=== PATIENT | female | born 1950 | race Hispanic/Latino ===

== ENCOUNTER 2020-12-15 20:59 | Emergency (ER) | payer OTHER ==
[2020-12-15 22:28] LABS: Basophils % 0.6 % (0-1.3); Hematocrit 43.8 % (36.0-45.0); Lymphocytes % 23.5 % (15.3-44.8); MPV 9.4 fL (7.6-11.3); RBC Red Blood Cell Count 5.02 M/uL (3.86-4.86)
[2020-12-15 22:39] LABS: ALT/SGPT 53 U/L (12-78); AST/SGOT 29 U/L (15-37); Albumin 3.9 g/dL (3.4-5.0); Alkaline Phosphatase 128 U/L (45-117); BUN Blood Urea Nitrogen 14 mg/dL (7-18); Bicarbonate 29 mmol/L (21-32); Bilirubin Direct 0.1 mg/dL (0-0.2); Bilirubin Total 0.3 mg/dL (0.2-1.0); Glucose Level 122 mg/dL (74-106); Lipase 153 U/L (73-393); Potassium 3.6 mmol/L (3.5-5.1); Protein, Total 8.3 g/dL (6.4-8.2); Sodium Level 141 mmol/L (136-145)
--- NOTE | 2020-12-16 00:45 | EDPHYS ---
Physician Documentation [facility] Name: Lakia Patel Age: 70 yrs Sex: Female : 1950 Arrival Date: 12/15/2020 Time: 21:03 Bed 26 Private MD: ED Physician Sly Welsh HPI: 12/16 00:42 This 70 yrs old Female presents to ER via Ambulatory with complaints of Rectal jmm Bleeding. 00:42 The patient presents to the emergency department with bleeding from the rectum/anus, jmm that is moderate. Onset: The symptoms/episode began/occurred today. Modifying factors: The symptoms are alleviated by nothing. This is a 70-year-old female with history of diabetes mellitus presents emerged department with complaints of 3 episodes of bloody bowel movements. Describes as bright red. Patient states having some mild abdominal pain. Denies dysuria. Denies vomiting. Denies tarry stools. Denies black stools.. Historical: - Allergies: 12/15 21:20 No Known Allergies; sj1 - Home Meds: 22:00 metformin 500 mg Oral tab 1 tab 2 times per day [Active]; dc2 22:00 glipizide 5 mg Oral tab once daily [Active]; losartan 25 mg oral tab once daily dc2 [Active]; letrozole 2.5 mg oral tab once daily [Active]; oxybutynin chloride 5 mg Oral tr24 1 tab once daily [Active]; 22:00 Glucosamine-Chondroitin Complx 750-625-30 mg oral tab daily [Active]; dc2 - PMHx: 21:20 Diabetes - NIDDM; Hypertension; Fatty Liver; Breast Ca (rt side); sj1 - PSHx: 21:20 Cholecystectomy; colonoscopy; Lumpectomy of breast; rt; sj1 - Immunization history:: Adult Immunizations up to date. - Social history:: Smoking status: Patient denies any tobacco usage or history of. Patient/guardian denies using alcohol, street drugs. ROS: 12/16 00:42 Constitutional: Negative for fever, chills, and weight loss, Cardiovascular: Negative jmm for chest pain, palpitations, and edema, Respiratory: Negative for shortness of breath, cough, wheezing, and pleuritic chest pain. Abdomen/GI: Positive for rectal bleeding. All other systems are negative. Exam: 00:42 Constitutional: This is a well developed, well nourished patient who is awake, alert, jmm and in no acute distress. Head/Face: atraumatic. Eyes: EOMI, no conjunctival erythema appreciated ENT: Moist Mucus Membranes Neck: Trachea midline, Supple Chest/axilla: Normal chest wall appearance and motion. Cardiovascular: Regular rate and rhythm. No edema appreciated Respiratory: Normal respirations, no respiratory distress appreciated 00:42 Back: Normal ROM Skin: General appearance color normal MS/ Extremity: Moves all extremities, no obvious deformities appreciated, no edema noted to the lower extremities Neuro: Awake and alert, normal gait Psych: Behavior is normal, Mood is normal, Patient is cooperative and pleasant 00:42 Abdomen/GI: Inspection: obese Bowel sounds: normal, Palpation: soft, mild abdominal tenderness, in all quadrants. Vital Signs: 12/15 21:16 BP 159 / 52 RA Sitting (auto/lg); Pulse 78; Resp 18 S; Temp 98.4; Pulse Ox 100% on R/A; [facility] Weight 103.42 kg (R); Height 5 ft. 0 in. (152.40 cm) (R); Pain 0/10; 22:00 BP 135 / 58; Pulse 75; Resp 17; Pulse Ox 97% ; Pain 0/10; dc2 23:00 BP 178 / 80; Pulse 73; Resp 18; Pulse Ox 97% ; Pain 0/10; dc2 12/16 00:15 BP 173 / 80; Pulse 79; Resp 8; Temp 98.0; Pulse Ox 98% ; Pain 0/10; dc2 12/15 21:16 Body Mass Index 44.53 (103.42 kg, 152.40 cm) [facility] MDM: 12/15 21:35 Patient medically screened. [facility] 12/16 00:44 Data reviewed: vital signs, nurses notes. Counseling: I had a detailed discussion with amie the patient and/or guardian regarding: the historical points, exam findings, and any diagnostic results supporting the discharge/admit diagnosis, lab results, radiology results, the need for outpatient follow up, to return to the emergency department if symptoms worsen or persist or if there are any questions or concerns that arise at home. 12/15 21:57 Order name: Basic Metabolic Panel; Complete Time: 22:[address] [facility] 12/15 21:57 Order name: CBC with Diff; Complete Time: 22:[address] [facility] 12/15 21:57 Order name: Hepatic Function; Complete Time: 22:[address] [facility] 12/15 21:57 Order name: Lipase; Complete Time: 22:[address] [facility] 12/15 21:57 Order name: Type And Screen [facility] 12/15 21:57 Order name: CT Abd/Pelvis - IV Contrast Only [facility] 12/15 21:57 Order name: IV Saline Lock; Complete Time: 22:[address] [facility] 12/15 21:57 Order name: Labs collected and sent; Complete Time: 22:[address] [facility] Administered Medications: No medications were administered Disposition: 08:03 Co-signature as Attending Physician, Sly Welsh MD I agree with the assessment and dago plan of care. Disposition Summary: 12/16/20 00:45 Discharge Ordered Location: Home [facility] Condition: Stable [facility] Diagnosis - Rectal Bleeding [facility] Followup: [facility] - With: Igor Ling MD - When: 2 - 3 days - Reason: Recheck today's complaints, Continuance of care, Re-evaluation by your physician Discharge Instructions: - Discharge Summary Sheet [facility] - Rectal Bleeding [facility] Forms: - Medication Reconciliation Form [facility] - Thank You Letter [facility] - Antibiotic Education [facility] - Prescription Opioid Use [facility] Signatures: Dispatcher [employer] Sly Cannon MD MD cha Mickail, Joel, PA PA [facility] BruceDpiti, RN RN dc2 Ivonne Lucas RN RN sj1
--- NOTE | 2020-12-16 00:45 | ER ---
Nurse's Notes [facility] Name: Lakia Patel Age: 70 yrs Sex: Female : 1950 Arrival Date: 12/15/2020 Time: 21:03 Bed 26 [facility] MD: Diagnosis: Rectal Bleeding Presentation: 12/15 21:16 Chief complaint: Patient states: reports 3 bowel movements today with bright red blood, sj1 denies abd pain, nausea, and vomiting. Coronavirus screen: Vaccine status: Patient reports receiving the 2nd dose of the covid vaccine. Ebola Screen: No symptoms or risks identified at this time. Initial Sepsis Screen: Does the patient meet any 2 criteria? No. Patient's initial sepsis screen is negative. Does the patient have a suspected source of infection? No. Patient's initial sepsis screen is negative. Risk Assessment: Do you want to hurt yourself or someone else? Patient reports no desire to harm self or others. Onset of symptoms was December 15, 2020. 21:16 Method Of Arrival: Ambulatory [facility] 21:16 Acuity: RAVEN 3 sj1 Triage Assessment: 21:22 General: Appears in no apparent distress. Behavior is calm, cooperative, appropriate sj1 for age. Pain: Denies pain. GI: Reports rectal bleeding. : No signs and/or symptoms were reported regarding the genitourinary system. Historical: - Allergies: 21:20 No Known Allergies; sj1 - Home Meds: 22:00 metformin 500 mg Oral tab 1 tab 2 times per day [Active]; dc2 22:00 glipizide 5 mg Oral tab once daily [Active]; losartan 25 mg oral tab once daily dc2 [Active]; letrozole 2.5 mg oral tab once daily [Active]; oxybutynin chloride 5 mg Oral tr24 1 tab once daily [Active]; 22:00 Glucosamine-Chondroitin Complx 750-625-30 mg oral tab daily [Active]; dc2 - PMHx: 21:20 Diabetes - NIDDM; Hypertension; Fatty Liver; Breast Ca (rt side); sj1 - PSHx: 21:20 Cholecystectomy; colonoscopy; Lumpectomy of breast; rt; sj1 - Immunization history:: Adult Immunizations up to date. - Social history:: Smoking status: Patient denies any tobacco usage or history of. Patient/guardian denies using alcohol, street drugs. Screenin:23 Abuse screen: Denies threats or abuse. Denies injuries from another. Nutritional 1 screening: No deficits noted. Tuberculosis screening: No symptoms or risk factors identified. Fall Risk None identified. Assessment: 21:35 Reassessment: Patient denies pain at this time. dc2 21:35 General: Appears in no apparent distress. comfortable, obese, well groomed, Behavior is dc2 calm, cooperative. Pain: Denies pain. Neuro: No deficits noted. Level of Consciousness is awake, alert, obeys commands, Oriented to person, place, time, situation, Denies weakness blurred vision headache. Cardiovascular: No deficits noted. Denies chest pain, shortness of breath. Respiratory: No deficits noted. Airway is patent Breath sounds are clear bilaterally. GI: No deficits noted. Abdomen is round non-distended, obese, Bowel sounds present X 4 quads. Reports rectal bleeding, bloody stool, since this afternoon X 3. : No signs and/or symptoms were reported regarding the genitourinary system. EENT: No deficits noted. No signs and/or symptoms were reported regarding the EENT system. Derm: No deficits noted. Musculoskeletal: No deficits noted. No signs and/or symptoms reported regarding the musculoskeletal system. 22:43 Reassessment: Pt ambulate to bathroom, states blood in toilet. I observed large amount dc2 of [place] red blood in toilet. Will make provider aware. Vital Signs: 21:16 BP 159 / 52 RA Sitting (auto/lg); Pulse 78; Resp 18 S; Temp 98.4; Pulse Ox 100% on R/A; [facility] Weight 103.42 kg (R); Height 5 ft. 0 in. (152.40 cm) (R); Pain 0/10; 22:00 BP 135 / 58; Pulse 75; Resp 17; Pulse Ox 97% ; Pain 0/10; dc2 23:00 BP 178 / 80; Pulse 73; Resp 18; Pulse Ox 97% ; Pain 0/10; dc2 12/16 00:15 BP 173 / 80; Pulse 79; Resp 8; Temp 98.0; Pulse Ox 98% ; Pain 0/10; dc2 12/15 21:16 Body Mass Index 44.53 (103.42 kg, 152.40 cm) [facility] ED Course: 12/15 21:03 Patient arrived in ED. bp1 21:20 Triage completed. sj1 21:23 Allergy band placed. Placed in gown. Bed in low position. Call light in reach. Side sj1 rails up X 1. 21:23 Arm band placed on left wrist. sj1 21:24 Cornelius Torres PA is PHCP. jm 21:24 Sly Welsh MD is Attending Physician. [facility] 21:29 Dipti Barrera, JORGE is Primary Nurse. dc2 21:40 Inserted saline lock: 20 gauge in left antecubital area, using aseptic technique. Blood dc2 collected. 22:08 Basic Metabolic Panel Sent. dc2 22:08 CBC with Diff Sent. dc2 22:08 Hepatic Function Sent. dc2 22:08 Lipase Sent. dc2 22:08 Type And Screen Sent. dc2 22:[address] dc2 23:00 Bed in low position. Side rails up X 1. property assessment monitor on. Pulse ox on. NIBP on. Door dc2 closed. Lights dimmed. Warm blanket given. 23:06 CT Abd/Pelvis - IV Contrast Only In Process Unspecified. EDMS 23:30 No apparent distress. Resting quietly. Awaiting lab results. dc2 12/16 00:44 Igor Ling MD is Referral Physician. [facility] 00:57 No provider procedures requiring assistance completed. Patient did not have IV access dc2 during this emergency room visit. IV discontinued, intact, bleeding controlled, No redness/swelling at site. Pressure dressing applied. 00:58 ED physician to see patient. dc2 Administered Medications: No medications were administered Outcome: 00:45 Discharge ordered by . [facility] 00:57 Discharged to home ambulatory. dc2 00:57 Condition: stable 00:57 Discharge instructions given to patient, family, Instructed on discharge instructions, follow up and referral plans. Demonstrated understanding of instructions, follow-up care. 00:58 Patient left the ED. dc2 Signatures: Dispatcher [employer] EDMS Cornelius Torres PA PA [facility] [employer] bp1 Dipti Barrera RN RN dc2 Ivonne Lucas RN RN [facility]
[2020-12-16 04:29] VITALS: BP 173/80; TEMP 98; O2SAT 98
--- NOTE | 2020-12-16 11:56 | RAD REPORT ---
EXAM DESCRIPTION: CT - Abdomen Pelvis W Contrast - 12/16/2020 7:21 am CLINICAL HISTORY: 70 years, Female, ABD PAIN COMPARISON: None. TECHNIQUE: Contrast-enhanced images of the abdomen and pelvis were performed utilizing 5 mm slice th ickness at 5 mm interval reconstruction from the lung bases to the ischial tuberosities after the adm inistration of IV contrast. In addition multiplanar reformats in the coronal and sagittal plane were obtained and reviewed. This exam was performed according to our departmental dose-optimization protocol, which includes auto mated exposure control, adjustment of the mA and/or kV according to patient size and/or use of iterat francisca reconstruction technique. FINDINGS: The lung bases demonstrate to be clear. Minimal atelectatic changes medial aspect left gagandeep g base. The liver demonstrate decreased attenuation corresponding to fatty infiltration. Otherwise the liver. Surgical clips within the gallbladder fossa correspond to previous cholecystectomy. There is no bilia ry dilatation. The pancreas, spleen and adrenal glands demonstrate to be unremarkable, no focal lesions are noted. The kidneys demonstrate normal uptake of contrast media. There is no evidence for nephrolithiasis and /or hydronephrosis. Findings suggest most likely bilateral extrarenal pelvis. Grossly the unopacified stomach, small bowel and large bowel demonstrate to be within normal limits. There is no evidence for bowel dilatation an/or free air. The appendix is normal. The urinary bladder was partially distended with no significant abnormalities. The uterus is unrema rkable. There are no adnexal masses. The aorta demonstrate minimal atheromatous plaque formation. There is no retroperitoneal lymphadenopathy. There is no evidence for ascites and/or significant abn ormal fluid collections. Bone windows demonstrate mild diffuse bony osteopenia. Multilevel degenerati ve disc disease. IMPRESSION: No acute intra-abdominal process. Fatty infiltration of the liver. Status post cholecystectomy. Electronically signed by: Terence San MD 12/15/2020 11:37 PM CDT Due to temporary technical issues with the PACS/Fluency reporting system, reports are being signed by the in house radiologists without review as a courtesy to insure prompt reporting. The interpreting radiologist is fully responsible for the content of the report.
== END 2020-12-16 00:58 | disposition home or self-care (01) ==
LOC: ER 20:59
DX: K62.5 Hemorrhage of anus and rectum (principal); I10 Essential (primary) hypertension; E11.9 Type 2 diabetes mellitus without complications; Z85.3 Personal history of malignant neoplasm of breast
CPT/HCPCS: 85025; 80048; 36415; 86900; 86850; 86901; 80076; 83690; 74177; 99285; Q9967